=== PATIENT | female | born 1950 | race Caucasian/White ===

== ENCOUNTER 2022-07-11 18:27 | Emergency (ER) | payer MEDICARE, BC ==
[~2022-07-11] VITALS: Ht 154.9 cm; Wt 59.0 kg
--- NOTE | 2022-07-11 20:16 | NUR ---
Patient and family refused to have EKG and PCXR done. Only blood draw and UA. Dr Vangie pizarro.
--- NOTE | 2022-07-11 20:20 | NUR ---
PATIENT WALKED OUT OF ER WITH FAMILY AND DID NOT WANT TO WAIT FOR LAB RESULT.
[2022-07-11 20:27] LABS: MEAN CORPUSCULAR HEMOGLOBIN 32.1 uug (24.7-32.8); PLATELET COUNT (AUTO) 159 K/uL (179-408)
[2022-07-11 20:30] LABS: CREATININE 0.9 mg/dL (0.6-1.3); POTASSIUM 3.7 mmol/L (3.5-5.1)
[2022-07-11 20:35] LABS: BILIRUBIN,DIRECT 0.1 mg/dL (0.0-0.2); BILIRUBIN,TOTAL 0.5 mg/dL (0.2-1.0); TOTAL PROTEIN, SERUM 7.3 g/dL (6.4-8.2)
[2022-07-11 20:42] LABS: *BILIRUBIN,URIN NEGATIVE (NEGATIVE); *BLOOD, URINE 2+ (NEGATIVE); *CLARITY,URINE CLEAR (CLEAR); *COLOR,URINE YELLOW (YELLOW); *KETONES,URINE NEGATIVE (NEGATIVE); *UROBILINOGEN,URINE 0.2 E.U./dl (NORMAL); LEUKOCYTE ESTERASE ,URINE NEGATIVE (NEGATIVE); NITRITE, URINE NEGATIVE (NEGATIVE); PH,URINE 6.5 (5.0-8.0); UGLUCOSE NEGATIVE (NEGATIVE)
[2022-07-11 20:56] LABS: BACTERIA,URINE FEW /HPF (NONE SEEN); SQUAMOUS EPITHELIAL CELL,UR MODERATE /HPF (NONE SEEN); WBC,URINE 0-3 /HPF (0-3)
== END 2022-07-11 20:20 | disposition home or self-care (01) ==
LOC: ER 18:28
DX: I10 Essential (primary) hypertension (principal); Z91.040 Latex allergy status; Z88.2 Allergy status to sulfonamides
CPT/HCPCS: 36415; 85025; 93005; A4663